=== PATIENT | male | born 1995 | race Two or more races ===

== ENCOUNTER 2016-10-27 13:19 | Emergency (ER) | payer SELFPAY ==
[~2016-10-27] VITALS: Ht 175.3 cm; Wt 77.1 kg
--- NOTE | 2016-10-27 13:29 | Emergency Room Report ---
History of Present Illness General Chief Complaint: General Complaint Source: Patient Present Illness HPI 21-year-old male presents emergency department brought by ambulance complaining of recent substance use, patient states he wants help to quit his substance use. Patient states he recently was on a binge of 5 days of using cocaine and drinking alcohol. Patient states cocaine as his drug of choice and he uses it regularly. Denies IV drug use. Patient estimates approximately twice per week. He denies past medical history. Patient denies SI or HI. Patient denies psychiatric symptoms such as paranoia, delusions, or depression. Patient states he's been using substances for approximately 8 years he has never been to detox and has never attempted to seek help with quitting before. Pt denies medical complaints. pt. states last use was 3 hours ago. Denies CP, Palpitations , LOC, AMS, dizziness, Changes in Vision, Sensation, paresthesias, or a sudden severe headache. Allergies: Coded Allergies: No Known Allergies (Unverified , 10/27/16) Patient History Past Medical History: see triage record Past Surgical History: none Pertinent Family History: none Social History: Reports: drug use - cocaine, speed, marijuana Reviewed Nursing Documentation: PMH: Agreed, PSxH: Agreed Nursing Documentation-PMH Past Medical History: No History, Except For Review of Systems All Other Systems: negative except mentioned in HPI Physical Exam Vital Signs Date Time Temp Pulse Resp B/P Pulse Ox O2 Delivery O2 Flow Rate FiO2 10/27/16 13:10 98.4 118 16 168/88 98 Sp02 EP Interpretation: reviewed, abnormal - tachycardic at 115, and pt. has elevated systolic bp General Appearance: no apparent distress, alert, GCS 15, non-toxic Head: normocephalic, atraumatic Eyes: bilateral eye PERRL, bilateral eye normal inspection ENT: hearing grossly normal, normal pharynx, no angioedema, normal voice Neck: full range of motion, supple/symm/no masses Respiratory: lungs clear, normal breath sounds, speaking full sentences Cardiovascular #1: regular rate, rhythm, no edema, normal capillary refill Cardiovascular #2: 2+ radial (R), 2+ radial (L) Gastrointestinal: normal bowel sounds, non tender, soft, no guarding, no rebound Rectal: deferred Musculoskeletal: back normal, gait/station normal, normal range of motion, non- tender Neurologic: alert, oriented x3, responsive, motor strength/tone normal, sensory intact, speech normal Psychiatric: judgement/insight normal, memory normal, mood/affect normal, no suicidal/homicidal ideation, no delusions, other - pt is calm, cooperative, and shows genuine interest in receiving help for substance use. Skin: normal color, no rash, warm/dry, well hydrated, other - facial acne, no cellulitis. Medical Decision Making PA Attestation Dr. Bearden is my supervising Physician whom patient management has been discussed with. Diagnostic Impression: Primary Impression: Substance use disorder Additional Impression: Substance dependence, daily use ER Course 21-year-old male presents emergency department brought by ambulance complaining of recent substance use, patient states he wants help to quit his substance use. Patient states he recently was on a binge of 5 days of using cocaine and drinking alcohol. Patient states cocaine as his drug of choice and he uses it regularly. Denies IV drug use. Patient estimates approximately twice per week. He denies past medical history. Patient denies SI or HI. Patient denies psychiatric symptoms such as paranoia, delusions, or depression. Patient states he's been using substances for approximately 8 years he has never been to detox and has never attempted to seek help with quitting before. Pt denies medical complaints. pt. states last use was 3 hours ago. Denies CP, Palpitations , LOC, AMS, dizziness, Changes in Vision, Sensation, paresthesias, or a sudden severe headache. Pt is hyperactive, and has a very anxious and restless affect. Ddx considered but are not limited to OD, SI/HI, psychosis, UTI, intoxication Vital signs: are WNL, pt. is afebrile, pt is tachycardic , re-evaluation after pt. rests : pt. is no longer tachycardic, and bp has normalized. H&PE are most consistent with substance dependence with use disorder. ORDERS: -CBC: unremarkable -CMP: unremarkable, electrolytes ok -UA: negative for infection see results attached. -UDS: positive for amphetamines, cocaine and Marijuana -Serum ETOH: 63 -Acetaminophen & Salicylates: WNL -Pt. is cleared medically will have social media content specialist contacted. ED INTERVENTIONS: - piggery worker was consulted who gave referrals and resources for sober living , NA meetings, and detox facilities. DISCHARGE: At this time pt. is stable for d/c to home. Will provide printed patient care instructions, and any necessary prescriptions. Care plan and follow up instructions have been discussed with the patient prior to discharge. Labs Test 10/27/16 13:13 White Blood Count 10.5 K/UL (4.8-10.8) Red Blood Count 4.63 M/UL (4.70-6.10) Hemoglobin 15.0 G/DL (14.2-18.0) Hematocrit 43.1 % (42.0-52.0) Mean Corpuscular Volume 93 FL (80-99) Mean Corpuscular Hemoglobin 32.5 PG (27.0-31.0) Mean Corpuscular Hemoglobin Concent 34.8 G/DL (32.0-36.0) Red Cell Distribution Width 11.5 % (11.6-14.8) Platelet Count 270 K/UL (150-450) Mean Platelet Volume 7.1 FL (6.5-10.1) Neutrophils (%) (Auto) 65.2 % (45.0-75.0) Lymphocytes (%) (Auto) 25.7 % (20.0-45.0) Monocytes (%) (Auto) 7.4 % (1.0-10.0) Eosinophils (%) (Auto) 0.9 % (0.0-3.0) Basophils (%) (Auto) 0.8 % (0.0-2.0) Sodium Level 139 mEQ/L (135-145) Potassium Level 3.6 mEQ/L (3.4-4.9) Chloride Level 99 mEQ/L (98-107) Carbon Dioxide Level 21 mEQ/L (20-30) Anion Gap 19 (5-15) Blood Urea Nitrogen 8 mg/dL (7-23) Creatinine 1.0 mg/dL (0.7-1.2) Estimat Glomerular Filtration Rate > 60 mL/min (>60) Glucose Level 84 mg/dL (74-106) Calcium Level 9.4 mg/dL (8.6-10.2) Total Bilirubin 1.3 mg/dL (0.0-1.2) Direct Bilirubin 0.2 mg/dL (0.1-0.3) Aspartate Amino Transf (AST/SGOT) 23 U/L (5-40) Alanine Aminotransferase (ALT/SGPT) 36 U/L (3-41) Alkaline Phosphatase 91 U/L (40-129) Total Protein 7.4 g/dL (6.6-8.7) Albumin 4.8 g/dL (3.5-5.2) Globulin 2.6 g/dL Albumin/Globulin Ratio 1.8 (1.0-2.7) Salicylates Level < 1 mg/dL (10-30) Urine Opiates Screen Negative (NEGATIVE) Acetaminophen Level < 8 ug/mL (10-30) Urine Barbiturates Screen Negative (NEGATIVE) Phencyclidine (PCP) Screen Negative (NEGATIVE) Urine Amphetamines Screen Positive (NEGATIVE) Urine Benzodiazepines Screen Negative (NEGATIVE) Urine Cocaine Screen Positive (NEGATIVE) Urine Marijuana (THC) Screen Positive (NEGATIVE) Serum Alcohol 62 mg/dL Last Vital Signs Date Time Temp Pulse Resp B/P Pulse Ox O2 Delivery O2 Flow Rate FiO2 10/27/16 13:10 98.4 118 16 168/88 98 Disposition: HOME, SELF-CARE Condition: Stable Patient Instructions: Substance Use Disorder Additional Instructions: Take medications as directed. Follow up with PCP in 3-5 days Return sooner to ED if new symptoms occur, or current symptoms become worse. - Please note that this Emergency Department Report was dictated using [employer] technology software, occasionally this can lead to erroneous entry secondary to interpretation by the dictation equipment. Onelia Lopez Oct 27, 2016 13:29
[2016-10-27 14:20] LABS: BASOPHILS % (AUTO) 0.8 % (0.0-2.0); EOSINOPHILS % (AUTO) 0.9 % (0.0-3.0); LYMPHOCYTES % (AUTO) 25.7 % (20.0-45.0); MEAN CORPUSCULAR HEMOGLOBIN 32.5 PG (27.0-31.0); MEAN CORPUSCULAR HGB CONC 34.8 G/DL (32.0-36.0); MEAN CORPUSCULAR VOLUME 93 FL (80-99); MEAN PLATELET VOLUME 7.1 FL (6.5-10.1); MONOCYTES % (AUTO) 7.4 % (1.0-10.0); NEUTROPHILS % (AUTO) 65.2 % (45.0-75.0); PLATELET COUNT 270 K/UL (150-450); RED BLOOD COUNT 4.63 M/UL (4.70-6.10); RED CELL DISTRIBUTION WIDTH 11.5 % (11.6-14.8); WHITE BLOOD COUNT 10.5 K/UL (4.8-10.8)
[2016-10-27 14:43] LABS: ALANINE AMINOTRANSFERASE 36 U/L (3-41); ALBUMIN/GLOBULIN RATIO 1.8 (1.0-2.7); ASPARTATE AMINO TRANSFERASE 23 U/L (5-40); CALCIUM 9.4 mg/dL (8.6-10.2); CARBON DIOXIDE 21 mEQ/L (20-30); GLOMERULAR FILTRATION RATE > 60 mL/min (>60); TOTAL PROTEIN 7.4 g/dL (6.6-8.7)
[2016-10-27 14:44] LABS: ACETAMINOPHEN < 8 ug/mL (10-30); ALCOHOL 62 mg/dL; HEMOLYSIS 10
[2016-10-27 14:53] LABS: ANION GAP 19 (5-15); CHLORIDE 99 mEQ/L (98-107); POTASSIUM 3.6 mEQ/L (3.4-4.9); SODIUM 139 mEQ/L (135-145)
[2016-10-27 15:00] LABS: BILIRUBIN,DIRECT 0.2 mg/dL (0.1-0.3)
[2016-10-27 15:51] VITALS: BP 134/67
== END 2016-10-27 15:51 | disposition home or self-care (01) ==
LOC: EDBD 13:19 → EMR 13:45
DX: F14.20 Cocaine dependence, uncomplicated (principal); F12.90 Cannabis use, unspecified, uncomplicated; F15.90 Other stimulant use, unspecified, uncomplicated
CPT/HCPCS: 36415; 80053; 80300; 82248; 85025; 99283; G0480; 80329